=== PATIENT | male | born 1935 | race Two or more races ===

== ENCOUNTER 2021-08-12 21:48 | Inpatient (IN) | payer MEDICAID, OTHER ==
[~2021-08-12] VITALS: Ht 188 cm; Wt 88.0 kg
[2021-08-12] MEDS ORDERED: PIPERACILLIN/TAZ 3.375G PREMIX 50 ML IV ONE (22:15)
[2021-08-12 23:06] LABS: BASOPHILS % 0.6 % (0.0-2.0); EOSINOPHILS % 0.7 % (0.0-5.0); HEMATOCRIT. 33.5 % (42.0-52.0); HEMOGLOBIN. 11.3 g/dL (14.0-18.0); MEAN CORPUSCULAR HEMOGLOBIN 29.1 pg (28.0-32.0); MEAN CORPUSCULAR VOLUME 85.9 fL (80.0-94.0); MEAN PLATELET VOLUME 8.1 fl (7.4-10.4); MONOCYTES % 12.9 % (2.0-8.0); NEUTROPHILS % 66.8 % (40.0-76.0); PLATELET 151 x1000/uL (130-400); RED BLOOD CELL COUNT 3.89 mill/uL (4.7-6.1); RED CELL DISTRIBUTION WIDTH 13.9 % (11.6-14.6)
[2021-08-12 23:14] LABS: CHLORIDE 102 mEq/L (98-107)
[2021-08-12 23:15] LABS: PROTHROMBIN TIME 10.4 sec (9.6-11.0)
[2021-08-12 23:19] LABS: ETHANOL BLOOD < 10 mg/dL
[2021-08-12 23:22] LABS: LDL CHOLESTEROL 83 mg/dL (5-100)
[2021-08-12] MEDS ORDERED: IOHEXOL-350 100 ML BOTTLE ONE (23:43)
[2021-08-13] MEDS ORDERED: HYDRALAZINE HCL 25MG TABLET PO ONE (00:30)
[2021-08-13] MEDS: AZITHROMYCIN 500 MG in DEXT 5% WATER 250 ML IV SCH (06:36)
[2021-08-13] MEDS ORDERED: MAGNESIUM/ALUMINUM HYDROXIDE/SIMETHICONE 30ML UDC PO PRN (13:30)
[2021-08-13] MEDS ORDERED: ONDANSETRON HCL 4MG/2ML INJ IV PRN (13:30)
[2021-08-13] MEDS ORDERED: ACETAMINOPHEN 325MG TABLET PO PRN ×2 (13:30)
[2021-08-13] MEDS ORDERED: GUAIFENESIN 200MG/10ML SUGAR FREE UDC PO PRN (13:30)
[2021-08-13] MEDS ORDERED: DIPHENHYDRAMINE 50MG/ML VIAL IV PRN (13:30)
[2021-08-13] MEDS: SODIUM CHLORIDE 0.9% INJ 3ML FLUSH IVF SCH ×2 (14:03→21:47)
[2021-08-13] MEDS: ENOXAPARIN 40MG/0.4ML SYR SUBCUT SCH (14:07)
[2021-08-13 15:19] LABS: T4 FREE 1.19 ng/dL (0.76-1.46)
[2021-08-13 15:41] LABS: VITAMIN B12 SERUM 708 pg/mL (211-911)
[2021-08-13 16:30] VITALS: BP 145/81
[2021-08-13 17:45] VITALS: BP 145/81
[2021-08-13 20:00] VITALS: BP 153/63
[2021-08-13] MEDS ORDERED: ZOLPIDEM TARTRATE 5MG TABLET PO PRN (21:00)
[2021-08-14] VITALS: BP 146/74
[2021-08-14 04:00] VITALS: BP 170/79
[2021-08-14] MEDS: SODIUM CHLORIDE 0.9% INJ 3ML FLUSH IVF SCH ×3 (05:49→21:56)
[2021-08-14] MEDS: AZITHROMYCIN 500 MG in DEXT 5% WATER 250 ML IV SCH (05:49)
[2021-08-14] MEDS: CLONIDINE 0.1MG TABLET PO PRN (06:36)
[2021-08-14 08:00] VITALS: BP 105/61
[2021-08-14 12:00] VITALS: BP 175/82
[2021-08-14] MEDS: ENOXAPARIN 40MG/0.4ML SYR SUBCUT SCH (13:12)
[2021-08-14 16:00] VITALS: BP 150/72
[2021-08-14] MEDS ORDERED: ASPIRIN 81MG EC TABLET PO SCH (17:15)
[2021-08-14 20:00] VITALS: BP 150/80
[2021-08-14] MEDS ORDERED: ATORVASTATIN CALCIUM 20MG TABLET PO SCH ×2 (21:00)
[2021-08-14] MEDS: LEVETIRACETAM 500MG TABLET PO SCH (21:56)
[2021-08-15] VITALS: BP 125/83
[2021-08-15 04:00] VITALS: BP 157/81
[2021-08-15] MEDS: SODIUM CHLORIDE 0.9% INJ 3ML FLUSH IVF SCH ×2 (05:12→13:18)
[2021-08-15 08:00] VITALS: BP_SYST 108; BP_SYST 186; BP_DIAS 60; BP_DIAS 88
[2021-08-15] MEDS ORDERED: ASPIRIN 81MG TABLET PO SCH (09:00)
[2021-08-15] MEDS: CLONIDINE 0.1MG TABLET PO PRN (10:01)
[2021-08-15] MEDS: LEVETIRACETAM 500MG TABLET PO SCH (10:01)
[2021-08-15 12:00] VITALS: BP 108/60
[2021-08-15] MEDS: ENOXAPARIN 40MG/0.4ML SYR SUBCUT SCH (13:18)
[2021-08-15 14:58] VITALS: BP 108/60
[2021-08-15] MEDS ORDERED: LORAZEPAM 2MG/ML CPJ IV PRN (15:00)
[2021-08-15 16:00] VITALS: BP 124/68
== END 2021-08-15 16:48 | disposition short-term general hospital (02) | DRG 64 ==
LOC: ER 21:48 → CANBEDREQ 08-13 00:55 → MICUSO 08-13 05:30 → 6WST 08-13 16:06
PROVIDERS: ADMIT Internal Medicine; ATTEND Internal Medicine
PROC: 4A10X4Z Monitoring of Central Nervous Electrical Activity, External Approach (ICD-10-PCS; principal; 2021-08-14)
DX: I63.9 Cerebral infarction, unspecified (principal); G93.41 Metabolic encephalopathy; G81.94 Hemiplegia, unspecified affecting left nondominant side; I10 Essential (primary) hypertension; G40.909 Epilepsy, unspecified, not intractable, without status epilepticus; Z20.822 Contact with and (suspected) exposure to COVID-19; R47.81 Slurred speech; M32.9 Systemic lupus erythematosus, unspecified; G93.89 Other specified disorders of brain; Z74.01 Bed confinement status; Z90.49 Acquired absence of other specified parts of digestive tract; Z95.0 Presence of cardiac pacemaker
CPT/HCPCS: 36415; 70496; 70498; 71045; 72131; 80053; 80320; 82607; 82962; 83036; 83605; 83721; 83880; 84439; 84443; 84484; 85025; 87426; 93005; 95816; 97162; 97530; 99285; J0456; J1650; J2543; J7040; J7060; Q9967; G0480